=== PATIENT | male | born 1990 | race American Indian/Alaskan Native ===

== ENCOUNTER 2018-08-18 12:31 | Inpatient (IN) | payer BC ==
[2018-08-18] MEDS ORDERED: Sodium Chloride 0.9% 1,000 ML IV ONE (14:05)
--- NOTE | 2018-08-18 14:20 | C.PDOC ---
History Of Present Illness 28 y/o male presents to ED with c/o abdominal pain for 6 days and dark stool for "few days". Patient denies fever, hematemesis, diarrhea, dysuria, back pain or any other complaints at this time. Time Seen by Provider: 08/18/18 13:30 Chief Complaint (Nursing): Abdominal Pain History Per: Patient History/Exam Limitations: no limitations Onset/Duration Of Symptoms: Days Current Symptoms Are (Timing): Still Present Past Medical History Reviewed: Historical Data, Nursing Documentation, Vital Signs Vital Signs: Last Vital Signs Temp 98.8 F 08/18/18 13:10 Pulse 109 H 08/18/18 13:10 Resp 20 08/18/18 13:10 BP 149/102 H 08/18/18 13:10 Pulse Ox 100 08/18/18 13:10 - Medical History PMH: No Chronic Diseases Surgical History: No Surg Hx Family History: States: No Known Family Hx - Social History Hx Alcohol Use: No Hx Substance Use: No - Immunization History Hx Tetanus Toxoid Vaccination: No Hx Influenza Vaccination: No Hx Pneumococcal Vaccination: No Review Of Systems Constitutional: Negative for: Fever, Chills Cardiovascular: Negative for: Chest Pain Gastrointestinal: Positive for: Abdominal Pain. Negative for: Nausea, Vomiting Musculoskeletal: Negative for: Back Pain Physical Exam - Physical Exam Appears: Non-toxic, No Acute Distress Skin: Warm, Dry, No Rash Head: Atraumatic, Normacephalic Eye(s): bilateral: Normal Inspection Oral Mucosa: Moist Neck: Normal ROM, Supple Cardiovascular: Rhythm Regular Respiratory: Normal Breath Sounds, No Rales, No Rhonchi, No Wheezing Gastrointestinal/Abdominal: Soft, Tenderness (Diffuse), No Guarding, No Rebound Back: No CVA Tenderness Extremity: Normal ROM, Capillary Refill (<2 seconds), No Deformity Neurological/Psych: Oriented x3, Normal Speech, Normal Cognition ED Course And Treatment - Laboratory Results Result Diagrams: 08/18/18 14:21 08/18/18 14:21 O2 Sat by Pulse Oximetry: 100 (RA) Pulse Ox Interpretation: Normal Medical Decision Making Medical Decision Making: ro gi bleed labs imaging pending labs neg. ct shows ?sbo. accepted by pmd requests arago on consult. Disposition - Disposition Disposition: HOSPITALIZED Disposition Time: 17:56 Condition: STABLE - Clinical Impression Clinical Impression: Abdominal pain - Scribe Statement The provider has reviewed the documentation as recorded by the Lashayibenzo Ravi All medical record entries made by the Lashayibenzo were at my direction and personally dictated by me. I have reviewed the chart and agree that the record accurately reflects my personal performance of the history, physical exam, medical decision making, and the department course for this patient. I have also personally directed, reviewed, and agree with the discharge instructions and disposition.
[2018-08-18 14:26] LABS: BASO # 0.1 K/uL (0.0-0.2); BASO % 0.6 % (0.0-2.0); EOS # 0.1 K/uL (0.0-0.7); EOS % 1.3 % (0.0-4.0); HEMOGLOBIN 11.5 g/dL (12.0-18.0); LYMPH # 0.9 K/uL (1.0-4.3); LYMPH % 10.8 % (20.0-40.0); MEAN CELL VOLUME 81.4 fL (80.0-94.0); MEAN CORPUSCULAR HEMOGLOBIN 27.8 pg (27.0-31.0); MEAN CORPUSCULAR HGB CONC 34.2 g/dL (33.0-37.0); MEAN PLATELET VOLUME 6.8 fL (7.2-11.7); MONO # 1.1 K/uL (0.0-0.8); MONO % 13.1 % (0.0-10.0); NEUT # 6.5 K/uL (1.8-7.0); NEUT % 74.2 % (50.0-75.0); NRBC % 0.1 % (0.0-2.0); RBC 4.14 Mil/uL (4.40-5.90); WHITE BLOOD COUNT 8.7 K/uL (4.8-10.8)
[2018-08-18] MEDS ORDERED: Sodium Chloride 0.9% 1,000 ML ONE (14:31)
[2018-08-18 14:35] LABS: INR 1.5; PROTHROMBIN TIME 16.7 SECONDS (9.7-12.2)
[2018-08-18 14:39] LABS: ALBUMIN 4.5 g/dL (3.5-5.0); ALT/SGPT 47 U/L (21-72); AST/SGOT 47 U/L (17-59); BLOOD UREA NITROGEN 12 mg/dL (9-20); CALCIUM 9.7 mg/dl (8.6-10.4); GFR NON-AFRICAN AMERICAN > 60; LIPASE 232 U/L (23-300)
[2018-08-18] MEDS ORDERED: Potassium Chloride 20 mEq ER Tab PO STA (14:40)
[2018-08-18] MEDS ORDERED: Potassium Chloride 20 mEq ER Tab PO ONE (14:56)
[2018-08-18] MEDS ORDERED: Iodixanol 320 MG/ML 100 ML BOTTLE IV ONE (15:48)
[2018-08-18 16:23] LABS: SQUAMOUS EPITHIAL < 1 /hpf (0-5); URINE BILIRUBIN NEGATIVE (NEGATIVE); URINE BLOOD NEGATIVE (NEGATIVE); URINE GLUCOSE (UA) NORMAL (Normal); URINE LEUKOCYTE ESTERASE NEG Leu/uL (Negative); URINE PROTEIN 1+ mg/dL (NEGATIVE)
[2018-08-18 16:24] LABS: URINE CLARITY SL HAZY (Clear); URINE COLOR YELLOW (YELLOW)
--- NOTE | 2018-08-18 17:01 | CT ---
Date of service: 08/18/2018 PROCEDURE: CT Abdomen and Pelvis with contrast HISTORY: abd pain, gi bleed COMPARISON: None. TECHNIQUE: Following the intravenous administration of iodinated contrast material, a CT examination of the abdomen and pelvis performed from the domes of the diaphragms to the symphysis pubis with reformatted datasets provided in axial, sagittal and coronal planes. Oral contrast was not administered as per referring physician request. Coronal and sagittal reformats were generated. Contrast dose: Visipaque 320, 100 cc Radiation dose: Total exam DLP = 1186.78 mGy-cm. This CT exam was performed using one or more of the following dose reduction techniques: Automated exposure control, adjustment of the mA and/or kV according to patient size, and/or use of iterative reconstruction technique. FINDINGS: LOWER THORAX: Limited linear atelectasis or fibrosis in the right middle lobe as well as the left greater than right lower lobes. No pleural or pericardial effusion or cardiomegaly. LIVER: Unremarkable. No gross lesion or ductal dilatation. GALLBLADDER AND BILE DUCTS: Contracted. No radiodense cholelithiasis. PANCREAS: Unremarkable. No gross lesion or ductal dilatation. SPLEEN: Mild splenomegaly is identified to 13.5 cm. ADRENALS: Unremarkable. No mass. KIDNEYS AND URETERS: Unremarkable. No hydronephrosis. No solid mass. VASCULATURE: Unremarkable. No aortic aneurysm. No aortic atherosclerotic calcification or mural plaque present. BOWEL: Stomach is decompressed. There are gas-filled loops of small and large bowel which are variably distended could reflect a developing ileus or distal small bowel obstruction though if obstruction is present would be partial or intermittent obstructive process. Further clinical correlation is advised. APPENDIX: The appendix is difficult to evaluate due to limited pelvic ascites and mesenteric changes. Appendicitis is not favored however clinical correlation is advised as the proximal segment appears upper limits normal caliber at 7.5 mm. PERITONEUM: Trace ascites in the lower abdomen and pelvis of uncertain origin. Numerous lymph nodes are identified scattered in the central mesentery and also medial to the cecum in a pattern that may reflect mesenteric adenitis. No free intra peritoneal gas collection identified. LYMPH NODES: See perineum section above. BLADDER: Unremarkable. REPRODUCTIVE: Unremarkable. BONES: No acute fracture. OTHER FINDINGS: None. IMPRESSION: 1. Potential intermittent or partial distal small bowel obstruction versus ileus. 2. Likely mesenteric adenitis. 3. Mild splenomegaly. 4. Limited lower abdomen/pelvic ascites. The appendix is obscured secondarily and appendicitis is not favored but is difficult to fully exclude and further clinical correlation is advised. Findings discussed with Dr. Quinones with written down read back verification 08/18/2018 4:52 p.m.
[2018-08-18] MEDS ORDERED: Lactated Ringer's 1,000 ML IV SCH (17:30)
--- NOTE | 2018-08-18 18:12 | CP.PCM.HP ---
History of Present Illness - History of Present Illness History of Present Illness: Admitted this 28 years old male because of sudden onset of abdominal pains about 6 days ago. He did not have any LBM, nor vomiting. Claims he has bowel movements but not loose. The patient claims the pain is getting slightly better. Patient claims he was not eating because of th pains. Present on Admission - Present on Admission Any Indicators Present on Admission: No Review of Systems - Constitutional Constitutional: Weakness - Gastrointestinal Gastrointestinal: Abdominal Pain, Bloating, Nausea Past Patient History - Past Medical History & Family History Past Medical History?: No - Past Social History Smoking Status: Never Smoked Chewing Tobacco Use: No Cigar Use: No Alcohol: None Drugs: Denies Home Situation {Lives}: Alone - CARDIAC Hx Cardiac Disorders: No - PULMONARY Hx Respiratory Disorders: No - NEUROLOGICAL Hx Neurological Disorder: No - HEENT Hx HEENT Problems: No - RENAL Hx Chronic Kidney Disease: No - ENDOCRINE/METABOLIC Hx Endocrine Disorders: No - HEMATOLOGICAL/ONCOLOGICAL Hx Blood Disorders: No - INTEGUMENTARY Hx Dermatological Problems: No - MUSCULOSKELETAL/RHEUMATOLOGICAL Hx Musculoskeletal Disorders: No - GASTROINTESTINAL Hx Gastrointestinal Disorders: Yes (C/O abdominal pains x 6 days.) - GENITOURINARY/GYNECOLOGICAL Hx Genitourinary Disorders: No - PSYCHIATRIC Hx Psychophysiologic Disorder: No Hx Substance Use: No - SURGICAL HISTORY Hx Surgeries: No - ANESTHESIA Hx Anesthesia: No Has any member of the family had a problem w/ anesthesia?: No Meds Allergies/Adverse Reactions: Allergies Allergy/AdvReac Type Severity Reaction Status Date / Time No Known Allergies Allergy Unverified 08/18/18 13:12 Physical Exam - Constitutional Appears: No Acute Distress Additional comments: Very nervous. - Head Exam Head Exam: ATRAUMATIC, NORMAL INSPECTION, NORMOCEPHALIC - Eye Exam Eye Exam: EOMI, Normal appearance, PERRL Pupil Exam: NORMAL ACCOMODATION, PERRL - ENT Exam ENT Exam: Mucous Membranes Dry - Neck Exam Neck exam: Positive for: Full Rom - Respiratory Exam Respiratory Exam: Clear to Auscultation Bilateral, NORMAL BREATHING PATTERN - Cardiovascular Exam Cardiovascular Exam: Tachycardia, REGULAR RHYTHM, +S1, +S2 - GI/Abdominal Exam GI & Abdominal Exam: Hypoactive Bowel Sounds, Soft - Rectal Exam Rectal Exam: Deferred - Extremities Exam Extremities exam: Positive for: full ROM, normal inspection - Back Exam Back exam: FULL ROM, NORMAL INSPECTION - Neurological Exam Neurological exam: Alert, Oriented x3, Reflexes Normal - Psychiatric Exam Psychiatric exam: Normal Affect - Skin Skin Exam: Dry, Normal Color, Warm Results - Vital Signs Recent Vital Signs: Last Vital Signs Temp 98.8 F 08/18/18 17:46 Pulse 114 H 08/18/18 17:46 Resp 20 08/18/18 17:46 BP 159/99 H 08/18/18 17:46 Pulse Ox 100 08/18/18 17:46 - Labs Result Diagrams: 08/18/18 14:21 08/18/18 14:21 Labs: Laboratory Results - last 24 hr 08/18/18 08/18/18 08/18/18 14:21 14:21 14:21 WBC 8.7 RBC 4.14 L Hgb 11.5 L Hct 33.7 L MCV 81.4 MCH 27.8 MCHC 34.2 RDW 14.0 Plt Count 506 H MPV 6.8 L Neut % (Auto) 74.2 Lymph % (Auto) 10.[address] [place] % (Auto) 13.1 H Eos % (Auto) 1.3 Baso % (Auto) 0.6 Neut # (Auto) 6.5 Lymph # (Auto) 0.[address] # (Auto) 1.1 H Eos # (Auto) 0.1 Baso # (Auto) 0.1 PT 16.7 H INR 1.5 APTT 32 Sodium 136 Potassium 2.9 L Chloride 88 L Carbon Dioxide 34 H Anion Gap 17 BUN 12 Creatinine 1.1 Est GFR ( Amer) > 60 Est GFR (Non-Af Amer) > 60 Random Glucose 106 Calcium 9.7 Total Bilirubin 4.0 H AST 47 ALT 47 Alkaline Phosphatase 124 Total Protein 8.9 H Albumin 4.5 Globulin 4.4 H Albumin/Globulin Ratio 1.0 Lipase 232 Urine Color Urine Clarity Urine pH Ur Specific [place] Urine Protein Urine Glucose (UA) Urine Ketones Urine Blood Urine Nitrate Urine Bilirubin Urine Urobilinogen Ur Leukocyte Esterase Urine WBC (Auto) Urine RBC (Auto) Ur Squamous Epith Cells Stool Occult Blood Blood Type Antibody Screen 08/18/18 08/18/18 08/18/18 14:21 14:21 16:13 WBC RBC Hgb Hct MCV MCH MCHC RDW Plt Count MPV Neut % (Auto) Lymph % (Auto) [place] % (Auto) Eos % (Auto) Baso % (Auto) Neut # (Auto) Lymph # (Auto) [place] # (Auto) Eos # (Auto) Baso # (Auto) PT INR APTT Sodium Potassium Chloride Carbon Dioxide Anion Gap BUN Creatinine Est GFR ( Amer) Est GFR (Non-Af Amer) Random Glucose Calcium Total Bilirubin AST ALT Alkaline Phosphatase Total Protein Albumin Globulin Albumin/Globulin Ratio Lipase Urine Color Yellow Urine Clarity Sl hazy Urine pH 6.0 Ur Specific [place] 1.033 H Urine Protein 1+ H Urine Glucose (UA) Normal Urine Ketones 1+ H Urine Blood Negative Urine Nitrate Negative Urine Bilirubin Negative Urine Urobilinogen 4.0 Ur Leukocyte Esterase Neg Urine WBC (Auto) 13 H Urine RBC (Auto) 2 Ur Squamous Epith Cells < 1 Stool Occult Blood Negative Blood Type B POSITIVE Antibody Screen Negative Assessment & Plan - Assessment and Plan (Free Text) Assessment: Assessment: Small bowel obstruction VS Ileus. Hypokalemia Abdominal pains cause to bne determined. Tachycardia cause to be determined. Plan: Plan: NPO IV fluids 0.9 NSS 100 cc/hourly. Serial chemistries. Surgical consultation. abdominal US.
[2018-08-18] MEDS: Sodium Chloride 0.9% 1,000 ML IV SCH (18:33)
--- NOTE | 2018-08-18 19:30 | CP.PCM.CON ---
History of Present Illness - History of Present Illness History of Present Illness: General Surgery Consult Note for Dr. Dixon This is a 28M with a PMH of anemia. He presents because he has abdominal pain since wednesday. He reports that at the time the pain was a 10/10 so he did not eat due to lack of appetite. He now rates the pain as a 1.5/10. He said nothing makes it better worse. He reports that he has been taking alot of peptobismol becuase he felt the pain was associated with gas. He reports that he presented to the ED today becuase th epain persis and he wanted to know. He reports that he has been passing gas and moving his bowels. He reports last BM was today and that it was black. However it was not tarry or stick. He reports it was soft DAIN in ED was quiac negative. PMH:Anemia PSH: Denies Social: Denies vices Family: mother breast CA Review of Systems - Review of Systems All systems: reviewed and no additional remarkable complaints except - Constitutional Constitutional: absent: Anorexia, Chills - EENT Eyes: absent: Blind Spots, Blurred Vision - Cardiovascular Cardiovascular: absent: Chest Pain, Dyspnea - Respiratory Respiratory: absent: Dyspnea, Hemoptysis - Gastrointestinal Gastrointestinal: Abdominal Pain, Nausea - Genitourinary Genitourinary: Dysuria Past Patient History - Past Medical History & Family History Past Medical History?: No - Past Social History Smoking Status: Never Smoked Chewing Tobacco Use: No Cigar Use: No Alcohol: None Drugs: Denies Home Situation {Lives}: Alone - CARDIAC Hx Cardiac Disorders: No - PULMONARY Hx Respiratory Disorders: No - NEUROLOGICAL Hx Neurological Disorder: No - HEENT Hx HEENT Problems: No - RENAL Hx Chronic Kidney Disease: No - ENDOCRINE/METABOLIC Hx Endocrine Disorders: No - HEMATOLOGICAL/ONCOLOGICAL Hx Blood Disorders: No - INTEGUMENTARY Hx Dermatological Problems: No - MUSCULOSKELETAL/RHEUMATOLOGICAL Hx Musculoskeletal Disorders: No - GASTROINTESTINAL Hx Gastrointestinal Disorders: Yes (C/O abdominal pains x 6 days.) - GENITOURINARY/GYNECOLOGICAL Hx Genitourinary Disorders: No - PSYCHIATRIC Hx Substance Use: No - SURGICAL HISTORY Hx Surgeries: No - ANESTHESIA Hx Anesthesia: No Has any member of the family had a problem w/ anesthesia?: No Meds Allergies/Adverse Reactions: Allergies Allergy/AdvReac Type Severity Reaction Status Date / Time No Known Allergies Allergy Unverified 08/18/18 13:12 - Medications Medications: Current Medications Enoxaparin Sodium (Lovenox) 40 mg SC DAILY [facility] Lactated Ringer's (Lactated Ringer's) 1,000 mls @ 100 mls/hr IV .Q10H [facility] Sodium Chloride (Sodium Chloride 0.9%) 1,000 mls @ 100 mls/hr IV .Q10H [facility] Last Admin: 08/18/18 18:33 Dose: 100 mls/hr Ondansetron HCl (Zofran Inj) 4 mg IVP Q4H PRN PRN Reason: Nausea/Vomiting Physical Exam - Constitutional Appears: Non-toxic, No Acute Distress - Head Exam Head Exam: ATRAUMATIC, NORMOCEPHALIC - Eye Exam Eye Exam: EOMI - ENT Exam ENT Exam: Mucous Membranes Moist - Respiratory Exam Respiratory Exam: NORMAL BREATHING PATTERN - Cardiovascular Exam Cardiovascular Exam: +S1, +S2 - Neurological Exam Neurological exam: Normal Gait, Oriented x3 - Psychiatric Exam Psychiatric exam: Normal Affect, Normal Mood - Skin Skin Exam: Dry, Intact Results - Vital Signs Recent Vital Signs: Last Vital Signs Temp 98.8 F 08/18/18 17:46 Pulse 114 H 08/18/18 17:46 Resp 20 08/18/18 17:46 BP 159/99 H 08/18/18 17:46 Pulse Ox 100 08/18/18 18:58 - Labs Result Diagrams: 08/18/18 14:21 08/18/18 14:21 Labs: Laboratory Results - last 24 hr 08/18/18 08/18/18 08/18/18 14:21 14:21 14:21 WBC 8.7 RBC 4.14 L Hgb 11.5 L Hct 33.7 L MCV 81.4 MCH 27.8 MCHC 34.2 RDW 14.0 Plt Count 506 H MPV 6.8 L Neut % (Auto) 74.2 Lymph % (Auto) 10.8 L [place] % (Auto) 13.1 H Eos % (Auto) 1.3 Baso % (Auto) 0.6 Neut # (Auto) 6.5 Lymph # (Auto) 0.9 L [place] # (Auto) 1.1 H Eos # (Auto) 0.1 Baso # (Auto) 0.1 PT 16.7 H INR 1.5 APTT 32 Sodium 136 Potassium 2.9 L Chloride 88 L Carbon Dioxide 34 H Anion Gap 17 BUN 12 Creatinine 1.1 Est GFR ( Amer) > 60 Est GFR (Non-Af Amer) > 60 Random Glucose 106 Calcium 9.7 Total Bilirubin 4.0 H Direct Bilirubin AST 47 ALT 47 Alkaline Phosphatase 124 Total Protein 8.9 H Albumin 4.5 Globulin 4.4 H Albumin/Globulin Ratio 1.0 Lipase 232 Urine Color Urine Clarity Urine pH Ur Specific [place] Urine Protein Urine Glucose (UA) Urine Ketones Urine Blood Urine Nitrate Urine Bilirubin Urine Urobilinogen Ur Leukocyte Esterase Urine WBC (Auto) Urine RBC (Auto) Ur Squamous Epith Cells Stool Occult Blood Blood Type Antibody Screen 08/18/18 08/18/18 08/18/18 14:21 14:21 16:13 WBC RBC Hgb Hct MCV MCH MCHC RDW Plt Count MPV Neut % (Auto) Lymph % (Auto) [place] % (Auto) Eos % (Auto) Baso % (Auto) Neut # (Auto) Lymph # (Auto) [place] # (Auto) Eos # (Auto) Baso # (Auto) PT INR APTT Sodium Potassium Chloride Carbon Dioxide Anion Gap BUN Creatinine Est GFR ( Amer) Est GFR (Non-Af Amer) Random Glucose Calcium Total Bilirubin Direct Bilirubin AST ALT Alkaline Phosphatase Total Protein Albumin Globulin Albumin/Globulin Ratio Lipase Urine Color Yellow Urine Clarity Sl hazy Urine pH 6.0 Ur Specific [place] 1.033 H Urine Protein 1+ H Urine Glucose (UA) Normal Urine Ketones 1+ H Urine Blood Negative Urine Nitrate Negative Urine Bilirubin Negative Urine Urobilinogen 4.0 Ur Leukocyte Esterase Neg Urine WBC (Auto) 13 H Urine RBC (Auto) 2 Ur Squamous Epith Cells < 1 Stool Occult Blood Negative Blood Type B POSITIVE Antibody Screen Negative 08/18/18 18:31 WBC RBC Hgb Hct MCV MCH MCHC RDW Plt Count MPV Neut % (Auto) Lymph % (Auto) [place] % (Auto) Eos % (Auto) Baso % (Auto) Neut # (Auto) Lymph # (Auto) [place] # (Auto) Eos # (Auto) Baso # (Auto) PT INR APTT Sodium Potassium Chloride Carbon Dioxide Anion Gap BUN Creatinine Est GFR ( Amer) Est GFR (Non-Af Amer) Random Glucose Calcium Total Bilirubin Direct Bilirubin 2.4 H AST ALT Alkaline Phosphatase Total Protein Albumin Globulin Albumin/Globulin Ratio Lipase Urine Color Urine Clarity Urine pH Ur Specific [place] Urine Protein Urine Glucose (UA) Urine Ketones Urine Blood Urine Nitrate Urine Bilirubin Urine Urobilinogen Ur Leukocyte Esterase Urine WBC (Auto) Urine RBC (Auto) Ur Squamous Epith Cells Stool Occult Blood Blood Type Antibody Screen - Imaging and Cardiology CT scan - abdomen Status: Image reviewed by me, Report reviewed by me CT scan - pelvis Status: Image reviewed by me, Report reviewed by me Assessment & Plan - Assessment and Plan (Free Text) Assessment: 28M with abdominal pain CT: Possible early partial SBO vs mesenteric adinitis NPO IVF Pain Control Will re-evaluate in AM D/W Dr. Destiny Becerra PGY3
[2018-08-19] MEDS: Sodium Chloride 0.9% 1,000 ML IV SCH ×2 (06:22→14:46)
--- NOTE | 2018-08-19 08:32 | US ---
Abdominal ultrasound HISTORY: Abdominal pain. COMPARISON: CT dated 08/18/2018 TECHNIQUE: Real-time sonography was performed through the abdomen. FINDINGS: Liver: 15.4 centimeters in length. Increased echogenicity of the hepatic parenchymal cortex suggestive for fatty infiltration versus hepatic parenchymal disease. Clinical correlation. Gallbladder: Thickened gallbladder wall measuring up to 3.4 millimeters. No gross calculi or sludge. Negative sonographic Griffith's sign. Common bile duct measures 5.8 millimeters, within normal limits. Limited visualization of the pancreas. Spleen measures 11 centimeters in length, within normal limits. Visualized aorta and IVC are grossly preserved. Right kidney: 11.0 x 5.4 x 5.4 centimeters. No calculi or hydronephrosis Left Kidney: 12.8 x 6.3 x 6.4 centimeters. No calculi or hydronephrosis. Impression: 1. Prominent gallbladder wall measuring up to 3.4 millimeters. No gross calculi or sludge. Negative sonographic Griffith's sign. Clinical correlation. 2. Limited visualization of the pancreas. 3. Increased echogenicity of the hepatic parenchymal cortex suggestive for fatty infiltration versus hepatic parenchymal disease. Clinical correlation. A preliminary report was generated at 8:42 p.m. on 08/18/[address] Alex Barrios from [facility].
[2018-08-19 08:42] LABS: BASO % 0.6 % (0.0-2.0); EOS # 0.1 K/uL (0.0-0.7); EOS % 1.9 % (0.0-4.0); LYMPH # 0.8 K/uL (1.0-4.3); LYMPH % 12.1 % (20.0-40.0); MEAN CELL VOLUME 81.3 fL (80.0-94.0); MEAN CORPUSCULAR HEMOGLOBIN 27.8 pg (27.0-31.0); MEAN CORPUSCULAR HGB CONC 34.2 g/dL (33.0-37.0); MEAN PLATELET VOLUME 6.5 fL (7.2-11.7); MONO # 1.1 K/uL (0.0-0.8); MONO % 15.5 % (0.0-10.0); NEUT # 4.8 K/uL (1.8-7.0); NEUT % 69.9 % (50.0-75.0); RBC 3.61 Mil/uL (4.40-5.90); RED CELL DISTRIBUTION WIDTH 14.1 % (11.5-14.5); WHITE BLOOD COUNT 6.9 K/uL (4.8-10.8)
[2018-08-19 08:52] LABS: ALBUMIN 3.7 g/dL (3.5-5.0); ALT/SGPT 52 U/L (21-72); AST/SGOT 55 U/L (17-59); BLOOD UREA NITROGEN 10 mg/dL (9-20); GFR NON-AFRICAN AMERICAN > 60
[2018-08-19] MEDS ORDERED: Potassium Chloride 20 mEq ER Tab PO ONE (09:15)
[2018-08-19] MEDS: Enoxaparin 40 mg Syringe SC SCH (09:19)
[2018-08-19 09:20] LABS: HEPATITIS B SURFACE AG Negative (NEGATIVE)
[2018-08-19 09:26] LABS: HEPATITIS A IGM NEGATIVE (NEGATIVE); HEPATITIS B CORE AB NEGATIVE (NEGATIVE)
[2018-08-19 09:37] LABS: HEPATITIS C ANTIBODY NEGATIVE (NEGATIVE)
--- NOTE | 2018-08-19 10:26 | CP.PCM.PN ---
Subjective - Date & Time of Evaluation Date of Evaluation: 08/19/18 Time of Evaluation: 10:25 - Subjective Subjective: much improved. passing flatus. no distention. wiull start oral feedings Objective - Vital Signs/Intake and Output Vital Signs (last 24 hours): Temp Pulse Resp BP Pulse Ox 98.7 F 103 H 20 120/78 98 08/19/18 09:20 08/19/18 09:20 08/19/18 09:20 08/19/18 09:20 08/19/18 09:20 Intake and Output: 08/19/18 08/19/18 06:59 18:59 Intake Total 800 Balance 800 - Medications Medications: Current Medications Acetaminophen (Tylenol 325mg Tab) 650 mg PO Q6 PRN PRN Reason: Pain, moderate (4-7) Docusate Sodium (Colace) 100 mg PO BID [facility] Last Admin: 08/19/18 09:19 Dose: 100 mg Enoxaparin Sodium (Lovenox) 40 mg SC DAILY [facility] Last Admin: 08/19/18 09:19 Dose: 40 mg Lactated Ringer's (Lactated Ringer's) 1,000 mls @ 100 mls/hr IV .Q10H [facility] Last Admin: 08/18/18 21:01 Dose: 100 mls/hr Sodium Chloride (Sodium Chloride 0.9%) 1,000 mls @ 100 mls/hr IV .Q10H [facility] Last Admin: 08/19/18 06:22 Dose: 100 mls/hr Ondansetron HCl (Zofran Inj) 4 mg IVP Q4H PRN PRN Reason: Nausea/Vomiting - Labs Labs: 08/19/18 08:29 08/19/18 08:29 PT 16.7 SECONDS (9.7-12.2) H 08/18/18 14:21 INR 1.5 08/18/18 14:21 APTT 32 SECONDS (21-34) 08/18/18 14:21
--- NOTE | 2018-08-19 12:02 | CP.PCM.PN ---
Subjective - Date & Time of Evaluation Date of Evaluation: 08/19/18 Time of Evaluation: 11:58 - Subjective Subjective: Patient seen and examined. Laboratory results revieded.Abdominal US thickened gallbladder pina. Hepatitis proflie negative. Abdominal pains better. Tolerated the fluids PO> K still low at 3.0 No LBM. Objective - Vital Signs/Intake and Output Vital Signs (last 24 hours): Temp Pulse Resp BP Pulse Ox 98.7 F 103 H 20 120/78 98 08/19/18 09:20 08/19/18 09:20 08/19/18 09:20 08/19/18 09:20 08/19/18 09:20 Intake and Output: 08/19/18 08/19/18 06:59 18:59 Intake Total 800 Balance 800 - Medications Medications: Current Medications Acetaminophen (Tylenol 325mg Tab) 650 mg PO Q6 PRN PRN Reason: Pain, moderate (4-7) Docusate Sodium (Colace) 100 mg PO BID [facility] Last Admin: 08/19/18 09:19 Dose: 100 mg Enoxaparin Sodium (Lovenox) 40 mg SC DAILY [facility] Last Admin: 08/19/18 09:19 Dose: 40 mg Lactated Ringer's (Lactated Ringer's) 1,000 mls @ 100 mls/hr IV .Q10H [facility] Last Admin: 08/18/18 21:01 Dose: 100 mls/hr Sodium Chloride (Sodium Chloride 0.9%) 1,000 mls @ 100 mls/hr IV .Q10H [facility] Last Admin: 08/19/18 06:22 Dose: 100 mls/hr Potassium Chloride (Potassium Chloride 20 Meq/100 Ml) 20 meq in 100 mls @ 50 mls/hr IVPB ONCE ONE Stop: 08/19/18 13:52 Ondansetron HCl (Zofran Inj) 4 mg IVP Q4H PRN PRN Reason: Nausea/Vomiting - Labs Labs: 08/19/18 08:29 08/19/18 08:29 PT 16.7 SECONDS (9.7-12.2) H 08/18/18 14:21 INR 1.5 08/18/18 14:21 APTT 32 SECONDS (21-34) 08/18/18 14:21 - Constitutional Appears: No Acute Distress - Head Exam Head Exam: ATRAUMATIC, NORMAL INSPECTION, NORMOCEPHALIC - Eye Exam Eye Exam: EOMI, Normal appearance, PERRL Pupil Exam: NORMAL ACCOMODATION - ENT Exam ENT Exam: Mucous Membranes Moist - Neck Exam Neck Exam: Full ROM, Normal Inspection - Respiratory Exam Respiratory Exam: Clear to Ausculation Bilateral, NORMAL BREATHING PATTERN - Cardiovascular Exam Cardiovascular Exam: REGULAR RHYTHM, +S1, +S2 - GI/Abdominal Exam GI & Abdominal Exam: Soft, Normal Bowel Sounds - Rectal Exam Rectal Exam: Deferred - Extremities Exam Extremities Exam: Full ROM, Normal Inspection - Back Exam Back Exam: Full ROM, NORMAL INSPECTION - Neurological Exam Neurological Exam: Alert, Awake, Oriented x3, Reflexes Normal - Psychiatric Exam Psychiatric exam: Normal Affect, Normal Mood - Skin Skin Exam: Dry, Intact, Normal Color Assessment and Plan - Assessment and Plan (Free Text) Assessment: Assessment: Ileus sec to hypokalemia. Abdominal pains cause? Plan: Plan: Will give IV potassium 10 Meq. Serum lipase . If K is better in Am will Discharge.
[2018-08-19] MEDS ORDERED: Iohexol 240 (50 ml) PO ONE (14:45)
[2018-08-19] MEDS ORDERED: Iodixanol 320 MG/ML 100 ML BOTTLE IV ONE (20:02)
--- NOTE | 2018-08-19 23:40 | CARD ---
APPROVED REPORT Date of service: 08/18/2018 EKG Measurement Heart [id number] ID [id number] <Conclusion> Sinus tachycardia Nonspecific T wave abnormality Abnormal ECG
[2018-08-20] MEDS: Sodium Chloride 0.9% 1,000 ML IV SCH ×2 (01:32→12:45)
--- NOTE | 2018-08-20 07:46 | CP.PCM.PN ---
Subjective - Date & Time of Evaluation Date of Evaluation: 08/20/18 Time of Evaluation: 07:41 - Subjective Subjective: patient claims pains is slowly subsiding. Dr. Neal called yesterday and discussed the findings of the CAT scan. He claims that there could be a collection of what appears like a collection of fluids at the pelvic area ? appendicitieal abscess?. Recomemded a repeat CAT Scan with oral contrast. whiuch was done but no official report as of this time. I called Dr. Dixon and discussed the case with him and I kept the aptient NPO in the meantime. Patient is afebrile. Objective - Vital Signs/Intake and Output Vital Signs (last 24 hours): Temp Pulse Resp BP Pulse Ox 99.2 F 101 H 20 141/92 H 96 08/19/18 23:45 08/20/18 04:19 08/19/18 23:45 08/19/18 23:45 08/19/18 23:45 Intake and Output: 08/20/18 08/20/18 06:59 18:59 Intake Total 1600 Balance 1600 - Medications Medications: Current Medications Acetaminophen (Tylenol 325mg Tab) 650 mg PO Q6 PRN PRN Reason: Pain, moderate (4-7) Docusate Sodium (Colace) 100 mg PO BID [facility] Last Admin: 08/19/18 18:24 Dose: 100 mg Enoxaparin Sodium (Lovenox) 40 mg SC DAILY [facility] Last Admin: 08/19/18 09:19 Dose: 40 mg Lactated Ringer's (Lactated Ringer's) 1,000 mls @ 100 mls/hr IV .Q10H [facility] Last Admin: 08/18/18 21:01 Dose: 100 mls/hr Sodium Chloride (Sodium Chloride 0.9%) 1,000 mls @ 100 mls/hr IV .Q10H [facility] Last Admin: 08/20/18 01:32 Dose: 100 mls/hr Ondansetron HCl (Zofran Inj) 4 mg IVP Q4H PRN PRN Reason: Nausea/Vomiting - Labs Labs: 08/19/18 08:29 08/19/18 08:29 PT 16.7 SECONDS (9.7-12.2) H 08/18/18 14:21 INR 1.5 08/18/18 14:21 APTT 32 SECONDS (21-34) 08/18/18 14:21 - Constitutional Appears: Non-toxic, No Acute Distress - Head Exam Head Exam: ATRAUMATIC, NORMAL INSPECTION, NORMOCEPHALIC - Eye Exam Eye Exam: EOMI, Normal appearance, PERRL Pupil Exam: PERRL - ENT Exam ENT Exam: Mucous Membranes Moist - Neck Exam Neck Exam: Full ROM - Respiratory Exam Respiratory Exam: Clear to Ausculation Bilateral, NORMAL BREATHING PATTERN - Cardiovascular Exam Cardiovascular Exam: Tachycardia - GI/Abdominal Exam GI & Abdominal Exam: Soft, Tenderness - Rectal Exam Rectal Exam: Deferred - Extremities Exam Extremities Exam: Full ROM - Back Exam Back Exam: CVA tenderness (R), NORMAL INSPECTION - Neurological Exam Neurological Exam: Alert, Awake, Oriented x3 - Skin Skin Exam: Dry, Intact, Normal Color, Warm Assessment and Plan - Assessment and Plan (Free Text) Assessment: Assessment: Abdominal pains etiology still undetermined at this time. Plan: Plan: NPO. Continue IV fluids. Check the result of CAT SCan.
[2018-08-20 08:40] LABS: BASO % 0.5 % (0.0-2.0); EOS # 0.1 K/uL (0.0-0.7); EOS % 1.9 % (0.0-4.0); LYMPH # 0.8 K/uL (1.0-4.3); LYMPH % 11.5 % (20.0-40.0); MEAN CELL VOLUME 80.9 fL (80.0-94.0); MEAN CORPUSCULAR HEMOGLOBIN 27.3 pg (27.0-31.0); MEAN CORPUSCULAR HGB CONC 33.7 g/dL (33.0-37.0); MEAN PLATELET VOLUME 6.3 fL (7.2-11.7); MONO # 0.9 K/uL (0.0-0.8); MONO % 13.3 % (0.0-10.0); NEUT # 4.8 K/uL (1.8-7.0); NEUT % 72.8 % (50.0-75.0); RBC 3.65 Mil/uL (4.40-5.90); RED CELL DISTRIBUTION WIDTH 14.1 % (11.5-14.5); WHITE BLOOD COUNT 6.6 K/uL (4.8-10.8)
[2018-08-20 08:53] LABS: ALB/GLOB RATIO 1.1 (1.0-2.1); ALBUMIN 3.7 g/dL (3.5-5.0); ALT/SGPT 53 U/L (21-72); AST/SGOT 47 U/L (17-59); BLOOD UREA NITROGEN 5 mg/dL (9-20); CALCIUM 8.5 mg/dl (8.6-10.4); GFR NON-AFRICAN AMERICAN > 60
[2018-08-20 08:53] LABS: ALBUMIN 3.7 g/dL (3.5-5.0); ALT/SGPT 48 U/L (21-72); AST/SGOT 42 U/L (17-59); BLOOD UREA NITROGEN 5 mg/dL (9-20); CALCIUM 8.8 mg/dl (8.6-10.4); GFR NON-AFRICAN AMERICAN > 60; LIPASE 264 U/L (23-300)
[2018-08-20 09:08] LABS: FREE T4 2.29 ng/dL (0.78-2.19)
--- NOTE | 2018-08-20 09:08 | RAD ---
Date of service: 08/20/2018 HISTORY: tachycardia COMPARISON: Comparison made with CT scan abdomen pelvis 08/19/2018 which imaged both lung bases. FINDINGS: LUNGS: No active pulmonary disease. PLEURA: No significant pleural effusion identified, no pneumothorax apparent. CARDIOVASCULAR: No aortic atherosclerotic calcification present. Normal cardiac size. No pulmonary vascular congestion. OSSEOUS STRUCTURES: No significant abnormalities. VISUALIZED UPPER ABDOMEN: Normal. OTHER FINDINGS: None. IMPRESSION: Poor inspiration with low lung volumes, crowded bronchovascular markings and mild bibasilar atelectasis
[2018-08-20] MEDS: Enoxaparin 40 mg Syringe SC SCH (09:53)
--- NOTE | 2018-08-20 09:58 | CP.PCM.PN ---
Subjective - Date & Time of Evaluation Date of Evaluation: 08/20/18 Time of Evaluation: 07:00 - Subjective Subjective: GENERAL SURGERY PROGRESS NOTE FOR DR. GONZALEZ Patient seen and examined at bedside. He denies abdominal pain. States that he is passing flatus and had a BM last night. Objective - Vital Signs/Intake and Output Vital Signs (last 24 hours): Temp Pulse Resp BP Pulse Ox 98.5 F 108 H 20 141/88 96 08/20/18 07:10 08/20/18 07:10 08/20/18 07:10 08/20/18 07:10 08/20/18 07:10 Intake and Output: 08/20/18 08/20/18 06:59 18:59 Intake Total 1600 Balance 1600 - Medications Medications: Current Medications Acetaminophen (Tylenol 325mg Tab) 650 mg PO Q6 PRN PRN Reason: Pain, moderate (4-7) Docusate Sodium (Colace) 100 mg PO BID [facility] Last Admin: 08/20/18 09:52 Dose: 100 mg Enoxaparin Sodium (Lovenox) 40 mg SC DAILY [facility] Last Admin: 08/20/18 09:53 Dose: 40 mg Lactated Ringer's (Lactated Ringer's) 1,000 mls @ 100 mls/hr IV .Q10H [facility] Last Admin: 08/18/18 21:01 Dose: 100 mls/hr Sodium Chloride (Sodium Chloride 0.9%) 1,000 mls @ 100 mls/hr IV .Q10H [facility] Last Admin: 08/20/18 01:32 Dose: 100 mls/hr Ondansetron HCl (Zofran Inj) 4 mg IVP Q4H PRN PRN Reason: Nausea/Vomiting - Labs Labs: 08/20/18 08:31 08/20/18 08:31 PT 16.7 SECONDS (9.7-12.2) H 08/18/18 14:21 INR 1.5 08/18/18 14:21 APTT 32 SECONDS (21-34) 08/18/18 14:21 - Constitutional Appears: Non-toxic, No Acute Distress - Head Exam Head Exam: ATRAUMATIC, NORMAL INSPECTION - Eye Exam Eye Exam: EOMI, Normal appearance - Respiratory Exam Respiratory Exam: NORMAL BREATHING PATTERN. absent: Respiratory Distress - Cardiovascular Exam Cardiovascular Exam: +S1, +S2 - GI/Abdominal Exam GI & Abdominal Exam: Soft. absent: Distended, Firm, Guarding, Rigid, Tenderness - Neurological Exam Neurological Exam: Alert, Awake - Psychiatric Exam Psychiatric exam: Normal Affect, Normal Mood Assessment and Plan - Assessment and Plan (Free Text) Assessment: 28M with abdominal pain, CT: Possible early partial SBO vs mesenteric adenitis. Abscess adjacent to Rectum CT: Potential intermittent or partial distal small bowel obstruction versus ileus. Likely mesenteric adenitis. Mild splenomegaly. Limited lower abdomen/pelvic ascites. 3.2 x 3.8 cm fluid collection with limited peripheral enhancement suspicious for an abscess adjacent to the rectum. Rectal thickening may indicate proctitis and there are a few small diverticula seen related to the mid distal sigmoid colon. Local pericolic and perirectal reaction. Appendix appears to terminate immediately cephalad to this area. Consider proctitis or possibly distal sigmoid diverticulitis. - NPO as per primary - FU repeat CT abd/pelvis w/ PO contrast - Will FU results - Discussed plan with Dr. Destiny Whaley PGY-4
--- NOTE | 2018-08-20 12:25 | CT ---
Date of service: 08/19/2018 PROCEDURE: CT Abdomen and Pelvis with Oral contrast. HISTORY: abdominal abcess Abdominal abscess COMPARISON: Comparison made with prior CT scan abdomen pelvis 08/18/2018. TECHNIQUE: Contiguous axial images of the abdomen and pelvis performed following oral and intravenous injection of approximately 100 cc Visipaque 320 contrast material. Additional 2D sagittal and coronal reformats generated. The the the Radiation dose: Total exam DLP = 990.29 mGy-cm. This CT exam was performed using one or more of the following dose reduction techniques: Automated exposure control, adjustment of the mA and/or kV according to patient size, and/or use of iterative reconstruction technique. FINDINGS: LOWER THORAX: Small of bilateral effusions left larger than right. Minor bibasilar atelectasis also present left slightly greater than right as well. There is small hiatal hernia. Heart size normal. No significant pericardial effusion. The LIVER: Unremarkable. No gross lesion or ductal dilatation. GALLBLADDER AND BILE DUCTS: Unremarkable. PANCREAS: Unremarkable. No mass. No ductal dilatation. SPLEEN: Spleen remains mildly enlarged.. ADRENALS: Unremarkable. KIDNEYS AND URETERS: Unremarkable. No stone or hydronephrosis. BLADDER: Urinary bladder is incompletely distended which in part accounts for thick-walled appearance. Muscular hypertrophy may contribute. REPRODUCTIVE: Unremarkable. APPENDIX: The appendix appears somewhat distended with mild wall thickening extending inferiorly into the pelvis abutting what appears to represent a proteinaceous fluid collection and/or abscess which has been described below. Findings could represent early acute ruptured appendicitis BOWEL: Evaluation of the bowel is somewhat limited due to incomplete opacification. Stomach is partially distended with food debris liquid and air. Multiple distended loops of small bowel are present with wall thickening of what appears to be the distal ileum. Findings could be reactive given the presence of what is felt to represent a small pelvic abscess which has been described above. Clinical correlation recommended. There also appear to be a few scattered colonic diverticula along the sigmoid colon. PERITONEUM: Re demonstrated is an apparent discrete proteinaceous fluid and/or abscess collection within the left aspect of the pelvis which abuts the adjacent distal sigmoid near the rectum which measures approximately 3.8 x 3.1 cm. The source of this possible abscess is of uncertain etiology though could represent ruptured appendicitis given the location of the tip of the slightly dilated thick-walled appendix abutting this small of proteinaceous and/or abscess collection however differential diagnosis would also include diverticulitis/proctitis. Clinical correlation recommended.. LYMPH NODES: Unremarkable. No enlarged lymph nodes. VASCULATURE: Unremarkable. No aortic aneurysm. No the aortic atherosclerotic calcification or mural plaque present. BONES: No fracture or destructive lesion. OTHER FINDINGS: None. IMPRESSION: Re demonstrated is an apparent discrete proteinaceous fluid and/or abscess collection within the left aspect of the pelvis which abuts the adjacent distal sigmoid near the rectum which measures approximately 3.8 x 3.1 cm. The source of this possible abscess is of uncertain etiology though could represent ruptured appendicitis given the location of the tip of the slightly dilated thick-walled appendix abutting this small of proteinaceous and/or abscess collection however differential diagnosis would also include diverticulitis/proctitis. Clinical correlation recommended.. Findings also suggest mild ileus with wall thickening of a few distal loops of ileum near the adjacent abscess collection. Changes could be reactive. The small bilateral effusions left larger than right with mild bibasilar atelectasis left greater than right. Mild splenomegaly.
[2018-08-20] MEDS: Piperacillin/Tazobact 3.375 GM in Sodium Chloride 100 ML IVPB SCH (18:00)
[2018-08-20] MEDS: metroNIDAZOLE IV 500 mg/100 ml 500 MG/100 ML BAG IVPB SCH (18:38)
[2018-08-21] MEDS: metroNIDAZOLE IV 500 mg/100 ml 500 MG/100 ML BAG IVPB SCH ×4 (01:00→18:30)
--- NOTE | 2018-08-21 01:18 | CP.PCM.CON ---
History of Present Illness - History of Present Illness History of Present Illness: 28 yo male hospitalized on08/18/2018 for an abdominal pain, poor appetite and nausea for the past few days. He denies any fever. Cardiological evaluation was called to assess his persistent tachycardia. A CT of the abdomen and pelvis on suggested a perforated appendicitis with abscess. Patient is on Flagyl and Zosyn. He is now afebrile with no abdominal pain . WBC: 6.6 Hgb: 10.0 Na+: 136 K+: 3.1 BUN: 25 creatiniine 0.5. Patient already received K+ replacement. Review of Systems - Constitutional Constitutional: Anorexia - Gastrointestinal Gastrointestinal: Abdominal Pain, Bloating Past Patient History - Past Medical History & Family History Past Medical History?: No - Past Social History Smoking Status: Never Smoked - CARDIAC Hx Cardiac Disorders: No - PULMONARY Hx Respiratory Disorders: No - NEUROLOGICAL Hx Neurological Disorder: No - HEENT Hx HEENT Problems: No - RENAL Hx Chronic Kidney Disease: No - ENDOCRINE/METABOLIC Hx Endocrine Disorders: No - HEMATOLOGICAL/ONCOLOGICAL Hx Blood Disorders: No - INTEGUMENTARY Hx Dermatological Problems: No - MUSCULOSKELETAL/RHEUMATOLOGICAL Hx Musculoskeletal Disorders: No Hx Falls: No - GASTROINTESTINAL Hx Gastrointestinal Disorders: Yes (C/O abdominal pains x 6 days.) - GENITOURINARY/GYNECOLOGICAL Hx Genitourinary Disorders: No - PSYCHIATRIC Hx Substance Use: No - SURGICAL HISTORY Hx Surgeries: No - ANESTHESIA Hx Anesthesia: No Has any member of the family had a problem w/ anesthesia?: No Meds Allergies/Adverse Reactions: Allergies Allergy/AdvReac Type Severity Reaction Status Date / Time No Known Allergies Allergy Unverified 08/18/18 13:12 - Medications Medications: Current Medications Acetaminophen (Tylenol 325mg Tab) 650 mg PO Q6 PRN PRN Reason: Pain, moderate (4-7) Docusate Sodium (Colace) 100 mg PO BID [facility] Last Admin: 08/20/18 18:37 Dose: 100 mg Enoxaparin Sodium (Lovenox) 40 mg SC DAILY [facility] Last Admin: 08/20/18 09:53 Dose: 40 mg Lactated Ringer's (Lactated Ringer's) 1,000 mls @ 100 mls/hr IV .Q10H [facility] Last Admin: 08/18/18 21:01 Dose: 100 mls/hr Sodium Chloride (Sodium Chloride 0.9%) 1,000 mls @ 100 mls/hr IV .Q10H [facility] Last Admin: 08/20/18 12:45 Dose: 100 mls/hr Piperacillin Sod/Tazobactam (Sod 3.375 gm/ Sodium Chloride) 100 mls @ 200 mls/hr IVPB Q8H [facility]; Protocol Last Admin: 08/20/18 18:00 Dose: 200 mls/hr Metronidazole (Flagyl) 500 mg in 100 mls @ 100 mls/hr IVPB Q6 [facility]; Protocol Last Admin: 08/20/18 18:38 Dose: 100 mls/hr Ondansetron HCl (Zofran Inj) 4 mg IVP Q4H PRN PRN Reason: Nausea/Vomiting Physical Exam - Constitutional Appears: Well, Non-toxic, No Acute Distress - Head Exam Head Exam: NORMAL INSPECTION - Eye Exam Eye Exam: Normal appearance - ENT Exam ENT Exam: Normal Exam - Neck Exam Neck exam: Positive for: Normal Inspection - Respiratory Exam Respiratory Exam: Clear to Auscultation Bilateral, NORMAL BREATHING PATTERN - Cardiovascular Exam Cardiovascular Exam: Tachycardia - GI/Abdominal Exam GI & Abdominal Exam: Normal Bowel Sounds, Soft - Rectal Exam Rectal Exam: Deferred - Extremities Exam Extremities exam: Positive for: normal inspection - Back Exam Back exam: NORMAL INSPECTION - Neurological Exam Neurological exam: Alert, Normal Gait, Oriented x3, Reflexes Normal - Psychiatric Exam Psychiatric exam: Anxious - Skin Skin Exam: Dry, Intact, Normal Color, Warm Results - Vital Signs Recent Vital Signs: Last Vital Signs Temp 98.2 F 08/20/18 15:15 Pulse 99 H 08/20/18 23:25 Resp 20 08/20/18 15:15 BP 139/91 H 08/20/18 15:15 Pulse Ox 98 08/20/18 15:15 - Labs Result Diagrams: 08/20/18 08:31 08/20/18 08:31 Labs: Laboratory Results - last 24 hr 08/20/18 08/20/18 08/20/18 08:17 08:31 08:31 WBC 6.6 RBC 3.65 L Hgb 10.0 L Hct 29.5 L MCV 80.9 MCH 27.3 MCHC 33.7 RDW 14.1 Plt Count 497 H MPV 6.3 L Neut % (Auto) 72.8 Lymph % (Auto) 11.5 L Leon % (Auto) 13.3 H Eos % (Auto) 1.9 Baso % (Auto) 0.5 Neut # (Auto) 4.8 Lymph # (Auto) 0.8 L Leon # (Auto) 0.9 H Eos # (Auto) 0.1 Baso # (Auto) 0.0 Sodium 136 137 Potassium 3.1 L 3.1 L Chloride 98 99 Carbon Dioxide 27 25 Anion Gap 14 16 BUN 5 L 5 L Creatinine 0.9 0.8 Est GFR ( Amer) > 60 > 60 Est GFR (Non-Af Amer) > 60 > 60 Random Glucose 98 95 Calcium 8.8 8.5 L Total Bilirubin 2.3 H 2.2 H AST 42 47 ALT 48 53 Alkaline Phosphatase 102 115 Total Protein 7.3 7.1 Albumin 3.7 3.7 Globulin 3.6 3.4 Albumin/Globulin Ratio 1.0 1.1 Lipase 264 Free T4 TSH 3rd Generation 08/20/18 08:31 WBC RBC Hgb Hct MCV MCH MCHC RDW Plt Count MPV Neut % (Auto) Lymph % (Auto) Leon % (Auto) Eos % (Auto) Baso % (Auto) Neut # (Auto) Lymph # (Auto) Leon # (Auto) Eos # (Auto) Baso # (Auto) Sodium Potassium Chloride Carbon Dioxide Anion Gap BUN Creatinine Est GFR ( Amer) Est GFR (Non-Af Amer) Random Glucose Calcium Total Bilirubin AST ALT Alkaline Phosphatase Total Protein Albumin Globulin Albumin/Globulin Ratio Lipase Free T4 2.29 H TSH 3rd Generation 1.08 Assessment & Plan (1) Abdominal pain Assessment and Plan: R/o Ruptured appendix with abscess. ? Needs appendectomy with peritoneal drainage of abscess or Medical treatment with IV antibiotics. Status: Acute (2) Tachycardia Assessment and Plan: Secondary to inflammation, since the patient is euvolemic, and with no pain, and Hgb: 10.0 Status: Acute
[2018-08-21] MEDS: Piperacillin/Tazobact 3.375 GM in Sodium Chloride 100 ML IVPB SCH ×3 (03:00→17:59)
[2018-08-21] MEDS: Sodium Chloride 0.9% 1,000 ML IV SCH (06:17)
[2018-08-21] MEDS: Enoxaparin 40 mg Syringe SC SCH (09:35)
[2018-08-21] MEDS: Dextrose 5%/0.45% NS 1,000 ML IV SCH ×2 (09:39→18:31)
--- NOTE | 2018-08-21 10:32 | CP.PCM.PN ---
Subjective - Date & Time of Evaluation Date of Evaluation: 08/21/18 Time of Evaluation: 07:20 - Subjective Subjective: Pt seen and examined this AM. No adverse events overnight. Patient states that he has no pain, no nausea, vomiting, or fevers and is still having BM's and passing gas. Objective - Vital Signs/Intake and Output Vital Signs (last 24 hours): Temp Pulse Resp BP Pulse Ox 98.6 F 96 H 20 118/78 95 08/21/18 08:06 08/21/18 08:48 08/21/18 08:06 08/21/18 08:06 08/21/18 08:06 - Medications Medications: Current Medications Acetaminophen (Tylenol 325mg Tab) 650 mg PO Q6 PRN PRN Reason: Pain, moderate (4-7) Docusate Sodium (Colace) 100 mg PO BID [facility] Last Admin: 08/21/18 09:35 Dose: 100 mg Enoxaparin Sodium (Lovenox) 40 mg SC DAILY [facility] Last Admin: 08/21/18 09:35 Dose: 40 mg Piperacillin Sod/Tazobactam (Sod 3.375 gm/ Sodium Chloride) 100 mls @ 200 mls/hr IVPB Q8H [facility]; Protocol Last Admin: 08/21/18 09:35 Dose: 200 mls/hr Metronidazole (Flagyl) 500 mg in 100 mls @ 100 mls/hr IVPB Q6 [facility]; Protocol Last Admin: 08/21/18 05:15 Dose: 100 mls/hr Dextrose/Sodium Chloride (Dextrose 5%/0.45% Ns 1000 Ml) 1,000 mls @ 100 mls/hr IV .Q10H [facility] Last Admin: 08/21/18 09:39 Dose: 100 mls/hr Ondansetron HCl (Zofran Inj) 4 mg IVP Q4H PRN PRN Reason: Nausea/Vomiting - Labs Labs: 08/20/18 08:31 08/20/18 08:31 PT 16.7 SECONDS (9.7-12.2) H 08/18/18 14:21 INR 1.5 08/18/18 14:21 APTT 32 SECONDS (21-34) 08/18/18 14:21 - Constitutional Appears: Well, Non-toxic, No Acute Distress - Head Exam Head Exam: ATRAUMATIC, NORMOCEPHALIC - Eye Exam Eye Exam: Normal appearance. absent: Conjunctival injection, Scleral icterus - ENT Exam ENT Exam: Mucous Membranes Moist, Normal Oropharynx - Respiratory Exam Respiratory Exam: NORMAL BREATHING PATTERN. absent: Accessory Muscle Use, Respiratory Distress - Cardiovascular Exam Cardiovascular Exam: RRR - GI/Abdominal Exam GI & Abdominal Exam: Soft. absent: Distended, Tenderness, Rebound - Neurological Exam Neurological Exam: Alert, Awake, Oriented x3 - Psychiatric Exam Psychiatric exam: Normal Affect, Normal Mood - Skin Skin Exam: Dry, Intact, Normal Color, Warm Assessment and Plan - Assessment and Plan (Free Text) Assessment: 28M with h/o abdominal pain with pelvic fluid collection Plan: Pt is currently clinically asymptomatic No surgical intervention indicated at this time--pelvic fluid origin not identified at this time but he is currently asymptomatic and exam is benign Recommend advancing to CLD as tolerated but diet management per primary PRN pain and nausea medication Encourage ambulation Discussed with DR. Dixon, further recs per him Enriqueta Gillespie, PGY2
[2018-08-21 11:16] LABS: BLOOD UREA NITROGEN 7 mg/dL (9-20); CALCIUM 8.4 mg/dl (8.6-10.4); GFR NON-AFRICAN AMERICAN > 60
--- NOTE | 2018-08-21 13:09 | CP.PCM.PN ---
Subjective - Date & Time of Evaluation Date of Evaluation: 08/21/18 Time of Evaluation: 13:04 - Subjective Subjective: patient interviewed and examined. abdomen is completely benign. no masses no area of tendernwss. patient is afebrile. History does not suggest origin of abscess. most likely appendicitis based on patients agePlan- will ask IR to evaluate if collection is amenable to ct guided drainage. Objective - Vital Signs/Intake and Output Vital Signs (last 24 hours): Temp Pulse Resp BP Pulse Ox 98.6 F 96 H 20 118/78 95 08/21/18 08:06 08/21/18 08:48 08/21/18 08:06 08/21/18 08:06 08/21/18 08:06 - Medications Medications: Current Medications Acetaminophen (Tylenol 325mg Tab) 650 mg PO Q6 PRN PRN Reason: Pain, moderate (4-7) Docusate Sodium (Colace) 100 mg PO BID [facility] Last Admin: 08/21/18 09:35 Dose: 100 mg Enoxaparin Sodium (Lovenox) 40 mg SC DAILY [facility] Last Admin: 08/21/18 09:35 Dose: 40 mg Piperacillin Sod/Tazobactam (Sod 3.375 gm/ Sodium Chloride) 100 mls @ 200 mls/hr IVPB Q8H [facility]; Protocol Last Admin: 08/21/18 09:35 Dose: 200 mls/hr Metronidazole (Flagyl) 500 mg in 100 mls @ 100 mls/hr IVPB Q6 [facility]; Protocol Last Admin: 08/21/18 12:59 Dose: 100 mls/hr Dextrose/Sodium Chloride (Dextrose 5%/0.45% Ns 1000 Ml) 1,000 mls @ 100 mls/hr IV .Q10H [facility] Last Admin: 08/21/18 09:39 Dose: 100 mls/hr Ondansetron HCl (Zofran Inj) 4 mg IVP Q4H PRN PRN Reason: Nausea/Vomiting - Labs Labs: 08/20/18 08:31 08/21/18 10:46 PT 16.7 SECONDS (9.7-12.2) H 08/18/18 14:21 INR 1.5 08/18/18 14:21 APTT 32 SECONDS (21-34) 08/18/18 14:21
--- NOTE | 2018-08-21 15:40 | CP.PCM.PN ---
Subjective - Date & Time of Evaluation Date of Evaluation: 08/21/18 Time of Evaluation: 15:35 - Subjective Subjective: Afebrile. Seen by Dr. Dixon. Suggested that the fluid collection be drained by the radiological interventionalis. Consult started. Patient placed PatPon IV Flagyl and Zosyn. Pain is definitely subsiding.Abdomen is soft with? tenderness at the lower part. Pateint has to be seen by a social staff worker to perform a colonoscopy after his acute phase. Objective - Vital Signs/Intake and Output Vital Signs (last 24 hours): Temp Pulse Resp BP Pulse Ox 98.6 F 96 H 20 118/78 95 08/21/18 08:06 08/21/18 08:48 08/21/18 08:06 08/21/18 08:06 08/21/18 08:06 - Medications Medications: Current Medications Acetaminophen (Tylenol 325mg Tab) 650 mg PO Q6 PRN PRN Reason: Pain, moderate (4-7) Docusate Sodium (Colace) 100 mg PO BID [facility] Last Admin: 08/21/18 09:35 Dose: 100 mg Enoxaparin Sodium (Lovenox) 40 mg SC DAILY [facility] Last Admin: 08/21/18 09:35 Dose: 40 mg Piperacillin Sod/Tazobactam (Sod 3.375 gm/ Sodium Chloride) 100 mls @ 200 mls/h r IVPB Q8H [facility]; Protocol Last Admin: 08/21/18 09:35 Dose: 200 mls/hr Metronidazole (Flagyl) 500 mg in 100 mls @ 100 mls/hr IVPB Q6 [facility]; Protocol Last Admin: 08/21/18 12:59 Dose: 100 mls/hr Dextrose/Sodium Chloride (Dextrose 5%/0.45% Ns 1000 Ml) 1,000 mls @ 100 mls/hr IV .Q10H [facility] Last Admin: 08/21/18 09:39 Dose: 100 mls/hr Ondansetron HCl (Zofran Inj) 4 mg IVP Q4H PRN PRN Reason: Nausea/Vomiting - Labs Labs: 08/20/18 08:31 08/21/18 10:46 PT 16.7 SECONDS (9.7-12.2) H 08/18/18 14:21 INR 1.5 08/18/18 14:21 APTT 32 SECONDS (21-34) 08/18/18 14:21 - Constitutional Appears: Well, Non-toxic, No Acute Distress - Head Exam Head Exam: ATRAUMATIC, NORMAL INSPECTION, NORMOCEPHALIC - Eye Exam Eye Exam: EOMI, Normal appearance, PERRL Pupil Exam: PERRL - ENT Exam ENT Exam: Mucous Membranes Moist - Neck Exam Neck Exam: Full ROM, Normal Inspection - Respiratory Exam Respiratory Exam: NORMAL BREATHING PATTERN - Cardiovascular Exam Cardiovascular Exam: Tachycardia, REGULAR RHYTHM, +S1, +S2 - GI/Abdominal Exam GI & Abdominal Exam: Soft, Hypoactive Bowel Sounds - Rectal Exam Rectal Exam: Deferred - Extremities Exam Extremities Exam: Full ROM - Back Exam Back Exam: Full ROM - Neurological Exam Neurological Exam: Alert, Awake, Oriented x3 - Psychiatric Exam Psychiatric exam: Anxious, Normal Affect, Normal Mood - Skin Skin Exam: Dry, Intact, Normal Color, Warm Assessment and Plan - Assessment and Plan (Free Text) Assessment: Assessment: Fluid collection at pelvis area. Cause?Diverticulits/or appendicitis. But given the non toxic presentation of patient , doubt if this is appendicitis. Plan: Plan: Continue IV antibiotics and IV fluds. Keep patient NPO. For drainage of the fluid in AM.
[2018-08-22] MEDS: Piperacillin/Tazobact 3.375 GM in Sodium Chloride 100 ML IVPB SCH ×3 (01:15→17:44)
[2018-08-22] MEDS: metroNIDAZOLE IV 500 mg/100 ml 500 MG/100 ML BAG IVPB SCH ×5 (01:16→23:46)
[2018-08-22] MEDS: Dextrose 5%/0.45% NS 1,000 ML IV SCH ×3 (06:20→13:45)
[2018-08-22] MEDS: Enoxaparin 40 mg Syringe SC SCH (09:23)
--- NOTE | 2018-08-22 09:28 | PCM.IRP ---
History of Present Illness - History of Present Illness History of Present Illness: IR requested to evaluate for drainage of pelvic collection. CT reviewed and shows a small collection in the dependent pelvis, 3.5 x 3.3 cm. The location is not amenable to percutaneous drainage. Recommend repeating CT and if collections increases, will attempt provided the venous plexus posteriorly does not obstruct drainage path. Objective - Vital Signs/Intake and Output Vital Signs (last 24 hours): Vital Signs - 24 hr 08/21/18 08/21/18 08/21/18 15:55 16:01 23:20 Temperature 97.7 F Pulse Rate 104 H 96 H 97 H Respiratory 20 Rate Blood Pressure 134/90 O2 Sat by Pulse 96 Oximetry 08/21/18 08/22/18 08/22/18 23:40 03:53 07:00 Temperature 99.2 F 99.4 F Pulse Rate 91 H 93 H 90 Respiratory 20 18 Rate Blood Pressure 147/94 H 141/92 H O2 Sat by Pulse 96 97 Oximetry 08/22/18 07:30 Temperature Pulse Rate 78 Respiratory Rate Blood Pressure O2 Sat by Pulse Oximetry - Medications Medications: Current Medications Acetaminophen (Tylenol 325mg Tab) 650 mg PO Q6 PRN PRN Reason: Pain, moderate (4-7) Docusate Sodium (Colace) 100 mg PO BID [facility] Last Admin: 08/22/18 09:19 Dose: Not Given Enoxaparin Sodium (Lovenox) 40 mg SC DAILY [facility] Last Admin: 08/22/18 09:23 Dose: Not Given Piperacillin Sod/Tazobactam (Sod 3.375 gm/ Sodium Chloride) 100 mls @ 200 mls/hr IVPB Q8H [facility]; Protocol Last Admin: 08/22/18 09:13 Dose: 200 mls/hr Metronidazole (Flagyl) 500 mg in 100 mls @ 100 mls/hr IVPB Q6 [facility]; Protocol Last Admin: 08/22/18 06:21 Dose: 100 mls/hr Dextrose/Sodium Chloride (Dextrose 5%/0.45% Ns 1000 Ml) 1,000 mls @ 100 mls/hr IV .Q10H [facility] Last Admin: 08/22/18 09:14 Dose: 100 mls/hr Ondansetron HCl (Zofran Inj) 4 mg IVP Q4H PRN PRN Reason: Nausea/Vomiting - Labs Labs (last 24 hours): Laboratory Results - last 24 hr 08/21/18 10:46 Sodium 137 Potassium 3.7 Chloride 102 Carbon Dioxide 20 L Anion Gap 19 BUN 7 L Creatinine 0.8 Est GFR ( Amer) > 60 Est GFR (Non-Af Amer) > 60 Random Glucose 70 L Calcium 8.4 L
--- NOTE | 2018-08-22 12:08 | CP.PCM.PN ---
Subjective - Date & Time of Evaluation Date of Evaluation: 08/22/18 Time of Evaluation: 12:03 - Subjective Subjective: Surgery: Dr. Dixon Pt seen and examined. No acute overnight events. States he feels well and denies abdominal pain. Pt states he would like to eat, denies any nausea/vomiting. Denies fevers/chills. Objective - Vital Signs/Intake and Output Vital Signs (last 24 hours): Temp Pulse Resp BP Pulse Ox 99.4 F 78 18 141/92 H 97 08/22/18 07:00 08/22/18 07:30 08/22/18 07:00 08/22/18 07:00 08/22/18 07:00 - Medications Medications: Current Medications Acetaminophen (Tylenol 325mg Tab) 650 mg PO Q6 PRN PRN Reason: Pain, moderate (4-7) Docusate Sodium (Colace) 100 mg PO BID [facility] Last Admin: 08/22/18 09:19 Dose: Not Given Enoxaparin Sodium (Lovenox) 40 mg SC DAILY [facility] Last Admin: 08/22/18 09:23 Dose: Not Given Piperacillin Sod/Tazobactam (Sod 3.375 gm/ Sodium Chloride) 100 mls @ 200 mls/hr IVPB Q8H [facility]; Protocol Last Admin: 08/22/18 09:13 Dose: 200 mls/hr Metronidazole (Flagyl) 500 mg in 100 mls @ 100 mls/hr IVPB Q6 [facility]; Protocol Last Admin: 08/22/18 11:25 Dose: 100 mls/hr Dextrose/Sodium Chloride (Dextrose 5%/0.45% Ns 1000 Ml) 1,000 mls @ 100 mls/hr IV .Q10H [facility] Last Admin: 08/22/18 09:14 Dose: 100 mls/hr Ondansetron HCl (Zofran Inj) 4 mg IVP Q4H PRN PRN Reason: Nausea/Vomiting - Labs Labs: 08/20/18 08:31 08/21/18 10:46 PT 16.7 SECONDS (9.7-12.2) H 08/18/18 14:21 INR 1.5 08/18/18 14:21 APTT 32 SECONDS (21-34) 08/18/18 14:21 - Constitutional Appears: Well, No Acute Distress - Head Exam Head Exam: ATRAUMATIC, NORMOCEPHALIC - Eye Exam Eye Exam: Normal appearance - ENT Exam ENT Exam: Mucous Membranes Moist - Respiratory Exam Respiratory Exam: NORMAL BREATHING PATTERN - Cardiovascular Exam Cardiovascular Exam: RRR - GI/Abdominal Exam GI & Abdominal Exam: Soft. absent: Distended, Guarding, Tenderness - Neurological Exam Neurological Exam: Alert, Awake, Oriented x3 - Skin Skin Exam: Dry, Warm Assessment and Plan - Assessment and Plan (Free Text) Assessment: 28M admitted for abdominal pain r/o SBO vs intra-abdominal abscess as seen on CT Plan: - IR consulted to evaluate for possible drainage of fluid collection, however not amenable at this time - pt can be tolerated on CLD and advanced slowly as tolerated - CT scan can be repeated in a day or so to see if drainage possible at that time - plan discussed with Dr. Dixon who agrees with above Ge
--- NOTE | 2018-08-22 13:27 | CP.PCM.PN ---
Subjective - Date & Time of Evaluation Date of Evaluation: 08/22/18 Time of Evaluation: 13:23 - Subjective Subjective: Afebrile. Patient seen and examined. Aspiration could not be done becuase the area is not too accesible. Repeat Scan will be repeated to assess the saiZe of the fluid collection. If there is no increase in ythe size as I have discussed with Dr. Dixon he suggestefd that the patiewnt can be discharged with antibiotics and to be seen by him in office. Objective - Vital Signs/Intake and Output Vital Signs (last 24 hours): Temp Pulse Resp BP Pulse Ox 99.4 F 78 18 141/92 H 97 08/22/18 07:00 08/22/18 07:30 08/22/18 07:00 08/22/18 07:00 08/22/18 07:00 - Medications Medications: Current Medications Acetaminophen (Tylenol 325mg Tab) 650 mg PO Q6 PRN PRN Reason: Pain, moderate (4-7) Docusate Sodium (Colace) 100 mg PO BID [facility] Last Admin: 08/22/18 09:19 Dose: Not Given Enoxaparin Sodium (Lovenox) 40 mg SC DAILY [facility] Last Admin: 08/22/18 09:23 Dose: Not Given Piperacillin Sod/Tazobactam (Sod 3.375 gm/ Sodium Chloride) 100 mls @ 200 mls/hr IVPB Q8H [facility]; Protocol Last Admin: 08/22/18 09:13 Dose: 200 mls/hr Metronidazole (Flagyl) 500 mg in 100 mls @ 100 mls/hr IVPB Q6 [facility]; Protocol Last Admin: 08/22/18 11:25 Dose: 100 mls/hr Dextrose/Sodium Chloride (Dextrose 5%/0.45% Ns 1000 Ml) 1,000 mls @ 100 mls/hr IV .Q10H [facility] Last Admin: 08/22/18 09:14 Dose: 100 mls/hr Ondansetron HCl (Zofran Inj) 4 mg IVP Q4H PRN PRN Reason: Nausea/Vomiting - Labs Labs: 08/20/18 08:31 08/21/18 10:46 PT 16.7 SECONDS (9.7-12.2) H 08/18/18 14:21 INR 1.5 11/08/18 14:21 APTT 32 SECONDS (21-34) 08/18/18 14:21 - Constitutional Appears: Non-toxic, No Acute Distress - Head Exam Head Exam: ATRAUMATIC, NORMAL INSPECTION, NORMOCEPHALIC - Eye Exam Pupil Exam: PERRL - ENT Exam ENT Exam: Mucous Membranes Moist, Normal Exam - Neck Exam Neck Exam: Full ROM - Respiratory Exam Respiratory Exam: Clear to Ausculation Bilateral - Cardiovascular Exam Cardiovascular Exam: REGULAR RHYTHM, +S1, +S2 - GI/Abdominal Exam GI & Abdominal Exam: Soft - Rectal Exam Rectal Exam: Deferred - Extremities Exam Extremities Exam: Calf Tenderness, Full ROM - Back Exam Back Exam: Full ROM - Neurological Exam Neurological Exam: Alert, Awake, Oriented x3 - Skin Skin Exam: Dry, Intact, Normal Color, Warm Assessment and Plan - Assessment and Plan (Free Text) Assessment: Assessment : Fluid collection at the pelvis cause undetermined at this time. Plan: Plan: Contunue IV Flagyl, and Zosyn.
[2018-08-22] MEDS ORDERED: Iohexol 240 (50 ml) PO ONE (14:00)
--- NOTE | 2018-08-22 17:46 | CT ---
PROCEDURE: CT Abdomen and Pelvis without IV contrast. HISTORY: pelvic fluid COMPARISON: CT abdomen and pelvis with contrast performed 08/19/18 TECHNIQUE: Contiguous axial images of the abdomen and pelvis. Oral contrast was administered. No IV contrast given. Coronal and Sagittal reformats generated and reviewed. Radiation dose: Total exam DLP = 1067.83 mGy-cm. This CT exam was performed using one or more of the following dose reduction techniques: Automated exposure control, adjustment of the mA and/or kV according to patient size, and/or use of iterative reconstruction technique. FINDINGS: There is limited evaluation of the solid organs without the administration of IV contrast. LOWER THORAX: Patchy bilateral lower lobe consolidations and trace pleural effusions. LIVER: Unremarkable unenhanced appearance. GALLBLADDER AND BILE DUCTS: Unremarkable unenhanced appearance. PANCREAS: Unremarkable unenhanced appearance. SPLEEN: Splenomegaly. ADRENALS: Unremarkable unenhanced appearance. KIDNEYS AND URETERS: No hydronephrosis or obstructing renal calculus. BLADDER: Thick-walled under distended urinary bladder. REPRODUCTIVE: Unremarkable. APPENDIX: Similar in appearance to prior study somewhat distended with mild wall thickening. BOWEL: The stomach is nondistended. Multiple distended loops of small bowel. Oral contrast extends into the right colon. Diverticulosis without CT evidence of acute diverticulitis. Multiple thick-walled loops of small bowel. Thickened rectosigmoid colon raises concern for colitis. PERITONEUM: Apparent fluid collection in the pelvis measuring approximately 3.4 x 2.5 cm. No significant free fluid. No definite free air. LYMPH NODES: No bulky lymphadenopathy identified. VASCULATURE: No aortic aneurysm. No atherosclerotic calcifications present. Thick-walled under distended BONES: No acute osseous abnormality is detected. OTHER FINDINGS: Bilateral gynecomastia. IMPRESSION: Patchy bilateral lower lobe consolidations and trace pleural effusions. Apparent fluid collection in the pelvis measuring approximately 3.4 x 2.5 cm. Source unclear but possibly related to the appendix which remains similar in appearance, mildly dilated and thick walled. Diverticulitis/proctitis also remains in the differential. Multiple distended loops of small bowel. Oral contrast extends into the right colon. Diverticulosis without CT evidence of acute diverticulitis. Multiple thick-walled loops of small bowel. Thickened rectosigmoid colon raises concern for colitis. Mild splenomegaly. Additional findings as above.
--- NOTE | 2018-08-22 20:53 | CP.PCM.PN ---
Subjective - Date & Time of Evaluation Date of Evaluation: 08/22/18 Time of Evaluation: 20:51 - Subjective Subjective: Patient has no abdominal pain, no nausea, no diarrhea, no fever. No more tachycardia.Tolerated regular diet well. CTscan of the abdomen today revealed the same pelvic fluid collection, slightly less. Objective - Vital Signs/Intake and Output Vital Signs (last 24 hours): Temp Pulse Resp BP Pulse Ox 98.4 F 97 H 20 135/88 96 08/22/18 15:00 08/22/18 15:00 08/22/18 15:00 08/22/18 15:00 08/22/18 15:00 - Medications Medications: Current Medications Acetaminophen (Tylenol 325mg Tab) 650 mg PO Q6 PRN PRN Reason: Pain, moderate (4-7) Docusate Sodium (Colace) 100 mg PO BID [facility] Last Admin: 08/22/18 17:43 Dose: 100 mg Enoxaparin Sodium (Lovenox) 40 mg SC DAILY [facility] Last Admin: 08/22/18 09:23 Dose: Not Given Piperacillin Sod/Tazobactam (Sod 3.375 gm/ Sodium Chloride) 100 mls @ 200 mls/hr IVPB Q8H [facility]; Protocol Last Admin: 08/22/18 17:44 Dose: 200 mls/hr Metronidazole (Flagyl) 500 mg in 100 mls @ 100 mls/hr IVPB Q6 [facility]; Protocol Last Admin: 08/22/18 17:43 Dose: 100 mls/hr Dextrose/Sodium Chloride (Dextrose 5%/0.45% Ns 1000 Ml) 1,000 mls @ 100 mls/hr IV .Q10H [facility] Last Admin: 08/22/18 13:45 Dose: Not Given Ondansetron HCl (Zofran Inj) 4 mg IVP Q4H PRN PRN Reason: Nausea/Vomiting - Labs Labs: 08/20/18 08:31 08/21/18 10:46 PT 16.7 SECONDS (9.7-12.2) H 08/18/18 14:21 INR 1.5 08/18/18 14:21 APTT 32 SECONDS (21-34) 08/18/18 14:21 - Constitutional Appears: Well, Non-toxic, No Acute Distress - Head Exam Head Exam: NORMAL INSPECTION - Eye Exam Eye Exam: Normal appearance Pupil Exam: NORMAL ACCOMODATION - ENT Exam ENT Exam: Normal Exam - Neck Exam Neck Exam: Normal Inspection - Respiratory Exam Respiratory Exam: Clear to Ausculation Bilateral, NORMAL BREATHING PATTERN - Cardiovascular Exam Cardiovascular Exam: REGULAR RHYTHM - GI/Abdominal Exam GI & Abdominal Exam: Soft, Normal Bowel Sounds - Rectal Exam Rectal Exam: Deferred - Extremities Exam Extremities Exam: Normal Inspection - Back Exam Back Exam: NORMAL INSPECTION - Neurological Exam Neurological Exam: Alert, Awake, Oriented x3 - Psychiatric Exam Psychiatric exam: Anxious - Skin Skin Exam: Dry, Intact, Normal Color Assessment and Plan (1) Abdominal pain Assessment & Plan: On IV antibiotics. May switch to PO antibiotics in AM and discharge home. Status: Resolved (2) Tachycardia Status: Resolved
[2018-08-23] MEDS: Piperacillin/Tazobact 3.375 GM in Sodium Chloride 100 ML IVPB SCH ×2 (02:11→10:15)
[2018-08-23] MEDS: Dextrose 5%/0.45% NS 1,000 ML IV SCH ×2 (02:15→10:27)
[2018-08-23] MEDS: metroNIDAZOLE IV 500 mg/100 ml 500 MG/100 ML BAG IVPB SCH ×2 (06:00→12:12)
--- NOTE | 2018-08-23 09:13 | CP.PCM.PN ---
Subjective - Date & Time of Evaluation Date of Evaluation: 08/23/18 Time of Evaluation: 09:10 - Subjective Subjective: Surgery: Dr. Dixon Pt seen and examined. No acute overnight events. Pt is tolerating a regular diet, denies any abdominal pain and states he feels well. Denies nausea/vomiting, fevers/chills. Objective - Vital Signs/Intake and Output Vital Signs (last 24 hours): Temp Pulse Resp BP Pulse Ox 98.2 F 90 20 130/88 97 08/23/18 07:00 08/23/18 07:00 08/23/18 07:00 08/23/18 07:00 08/23/18 07:00 - Medications Medications: Current Medications Acetaminophen (Tylenol 325mg Tab) 650 mg PO Q6 PRN PRN Reason: Pain, moderate (4-7) Docusate Sodium (Colace) 100 mg PO BID [facility] Last Admin: 08/22/18 17:43 Dose: 100 mg Enoxaparin Sodium (Lovenox) 40 mg SC DAILY [facility] Last Admin: 08/22/18 09:23 Dose: Not Given Piperacillin Sod/Tazobactam (Sod 3.375 gm/ Sodium Chloride) 100 mls @ 200 mls/hr IVPB Q8H [facility]; Protocol Last Admin: 08/23/18 02:11 Dose: 200 mls/hr Metronidazole (Flagyl) 500 mg in 100 mls @ 100 mls/hr IVPB Q6 [facility]; Protocol Last Admin: 08/23/18 06:00 Dose: 100 mls/hr Dextrose/Sodium Chloride (Dextrose 5%/0.45% Ns 1000 Ml) 1,000 mls @ 100 mls/hr IV .Q10H [facility] Last Admin: 08/23/18 02:15 Dose: 100 mls/hr Ondansetron HCl (Zofran Inj) 4 mg IVP Q4H PRN PRN Reason: Nausea/Vomiting - Labs Labs: 08/20/18 08:31 08/21/18 10:46 PT 16.7 SECONDS (9.7-12.2) H 08/18/18 14:21 INR 1.5 08/18/18 14:21 APTT 32 SECONDS (21-34) 08/18/18 14:21 - Constitutional Appears: Well, No Acute Distress - Head Exam Head Exam: ATRAUMATIC, NORMOCEPHALIC - Eye Exam Eye Exam: Normal appearance - ENT Exam ENT Exam: Mucous Membranes Moist - Respiratory Exam Respiratory Exam: NORMAL BREATHING PATTERN - Cardiovascular Exam Cardiovascular Exam: RRR - GI/Abdominal Exam GI & Abdominal Exam: Soft. absent: Distended, Guarding, Tenderness - Extremities Exam Extremities Exam: absent: Calf Tenderness - Neurological Exam Neurological Exam: Alert, Awake, Oriented x3 - Skin Skin Exam: Dry, Warm Assessment and Plan - Assessment and Plan (Free Text) Assessment: 28M admitted for abdominal pain; found to have intra-abdominal fluid collection on CT Plan: - collection not amenable to IR drainage at this time - cont ABX - pt will need outpt GI followup/colonoscopy once acute inflammation resolves - no plan for surgical intervention at this time - d/w Dr. Destiny [place]
--- NOTE | 2018-08-23 09:45 | CP.PCM.CON ---
History of Present Illness - History of Present Illness History of Present Illness: 28 yo male admitted with six day h/o lower abdominal pain. CT scan shows fluid collection in area of appendix as well as dilated/thickened loops of distal small bowel and thickening of rectosigmoid colon. Fluid collection too small to aspirate by IR and cllinically his pain is better. No bleeding, N/V/C/D. No family h/o IBD. Review of Systems - Cardiovascular Cardiovascular: absent: Chest Pain, Dyspnea - Respiratory Respiratory: absent: Cough - Gastrointestinal Gastrointestinal: As Per HPI Past Patient History - Past Medical History & Family History Past Medical History?: No - Past Social History Smoking Status: Never Smoked - CARDIAC Hx Cardiac Disorders: No - PULMONARY Hx Respiratory Disorders: No - NEUROLOGICAL Hx Neurological Disorder: No - HEENT Hx HEENT Problems: No - RENAL Hx Chronic Kidney Disease: No - ENDOCRINE/METABOLIC Hx Endocrine Disorders: No - HEMATOLOGICAL/ONCOLOGICAL Hx Blood Disorders: No Hx Cirrhosis: No Hx Hepatitis A: No Hx Hepatitis B: No Hx Hepatitis C: No - INTEGUMENTARY Hx Dermatological Problems: No - MUSCULOSKELETAL/RHEUMATOLOGICAL Hx Musculoskeletal Disorders: No Hx Falls: No - GASTROINTESTINAL Hx Gastrointestinal Disorders: Yes (C/O abdominal pains x 6 days.) Hx Colitis: No Hx Crohn's Disease: No Hx Diarrhea: No Hx Gastritis: No Hx Gastroesophageal Reflux: No Hx Hemorrhoids: No - GENITOURINARY/GYNECOLOGICAL Hx Genitourinary Disorders: No - PSYCHIATRIC Hx Substance Use: No - SURGICAL HISTORY Hx Surgeries: No - ANESTHESIA Hx Anesthesia: No Has any member of the family had a problem w/ anesthesia?: No Meds Allergies/Adverse Reactions: Allergies Allergy/AdvReac Type Severity Reaction Status Date / Time No Known Allergies Allergy Unverified 08/18/18 13:12 - Medications Medications: Current Medications Acetaminophen (Tylenol 325mg Tab) 650 mg PO Q6 PRN PRN Reason: Pain, moderate (4-7) Docusate Sodium (Colace) 100 mg PO BID [facility] Last Admin: 08/22/18 17:43 Dose: 100 mg Enoxaparin Sodium (Lovenox) 40 mg SC DAILY [facility] Last Admin: 08/22/18 09:23 Dose: Not Given Piperacillin Sod/Tazobactam (Sod 3.375 gm/ Sodium Chloride) 100 mls @ 200 mls/hr IVPB Q8H [facility]; Protocol Last Admin: 08/23/18 02:11 Dose: 200 mls/hr Metronidazole (Flagyl) 500 mg in 100 mls @ 100 mls/hr IVPB Q6 [facility]; Protocol Last Admin: 08/23/18 06:00 Dose: 100 mls/hr Dextrose/Sodium Chloride (Dextrose 5%/0.45% Ns 1000 Ml) 1,000 mls @ 100 mls/hr IV .Q10H [facility] Last Admin: 08/23/18 02:15 Dose: 100 mls/hr Ondansetron HCl (Zofran Inj) 4 mg IVP Q4H PRN PRN Reason: Nausea/Vomiting Physical Exam - Constitutional Appears: No Acute Distress - Head Exam Head Exam: ATRAUMATIC, NORMOCEPHALIC - Respiratory Exam Respiratory Exam: NORMAL BREATHING PATTERN - Cardiovascular Exam Cardiovascular Exam: REGULAR RHYTHM, +S1 - GI/Abdominal Exam GI & Abdominal Exam: Normal Bowel Sounds, Soft. absent: Mass, Rigid, Tenderness Additional comments: Mild RLQ guiarding but no rebound or mass - Extremities Exam Extremities exam: Positive for: normal inspection - Neurological Exam Neurological exam: Alert, Oriented x3 - Psychiatric Exam Psychiatric exam: Normal Affect, Normal Mood - Skin Skin Exam: Dry, Warm Results - Vital Signs Recent Vital Signs: Last Vital Signs Temp 98.2 F 08/23/18 07:00 Pulse 90 08/23/18 07:00 Resp 20 08/23/18 07:00 BP 130/88 08/23/18 07:00 Pulse Ox 97 08/23/18 07:00 - Labs Result Diagrams: 08/20/18 08:31 08/21/18 10:46 - Imaging and Cardiology CT scan - abdomen Status: Image reviewed by me, Report reviewed by me Assessment & Plan (1) Pelvic fluid collection Assessment and Plan: r/o abscess, walled off [place] vs complication of IBD. Clinically improving on Abx. Continue Abx for 14 day course and then repeat CT as outpatient Status: Acute (2) Abnormal CT scan, colon Assessment and Plan: r/o IBD. Check IBD discrimination panel. Will likely need colonoscopy when clinically stable and fluid collection/abcess has resolved Follow up with me in office in 2 weeks if discharge planned today Status: Acute (3) Iron deficiency anemia Assessment and Plan: Check indices Status: Acute
[2018-08-23] MEDS: Enoxaparin 40 mg Syringe SC SCH (10:14)
--- NOTE | 2018-08-23 11:12 | CP.PCM.DIS ---
Provider - Provider Date of Admission: 08/18/18 17:03 Attending physician: Pat Mckeon MD Time Spent in preparation of Discharge (in minutes): 70 Diagnosis - Discharge Diagnosis (1) Iron deficiency anemia Status: Acute (2) Pelvic fluid collection Status: Acute (3) Abdominal pain Status: Resolved (4) Tachycardia Status: Resolved (5) Hypokalemia Status: Resolved (6) Dehydration Status: Resolved Hospital Course - Lab Results Lab Results: Most Recent Lab Values WBC 6.6 K/uL (4.8-10.8) 08/20/18 08:31 RBC 3.65 Mil/uL (4.40-5.90) L 08/20/18 08:31 Hgb 10.0 g/dL (12.0-18.0) L 08/20/18 08:31 Hct 29.5 % (35.0-51.0) L 08/20/18 08:31 MCV 80.9 fL (80.0-94.0) 08/20/18 08:31 MCH 27.3 pg (27.0-31.0) 08/20/18 08:31 MCHC 33.7 g/dL (33.0-37.0) 08/20/18 08:31 RDW 14.1 % (11.5-14.5) 08/20/18 08:31 Plt Count 497 K/uL (130-400) H 08/20/18 08:31 MPV 6.3 fL (7.2-11.7) L 08/20/18 08:31 Neut % (Auto) 72.8 % (50.0-75.0) 08/20/18 08:31 Lymph % (Auto) 11.5 % (20.0-40.0) L 08/20/18 08:31 [place] % (Auto) 13.3 % (0.0-10.0) H 08/20/18 08:31 Eos % (Auto) 1.9 % (0.0-4.0) 08/20/18 08:31 Baso % (Auto) 0.5 % (0.0-2.0) 08/20/18 08:31 Neut # (Auto) 4.8 K/uL (1.8-7.0) 08/20/18 08:31 Lymph # (Auto) 0.8 K/uL (1.0-4.3) L 08/20/18 08:31 Swift # (Auto) 0.9 K/uL (0.0-0.8) H 08/20/18 08:31 Eos # (Auto) 0.1 K/uL (0.0-0.7) 08/20/18 08:31 Baso # (Auto) 0.0 K/uL (0.0-0.2) 08/20/18 08:31 PT 16.7 SECONDS (9.7-12.2) H 08/18/18 14:21 INR 1.5 08/18/18 14:21 APTT 32 SECONDS (21-34) 08/18/18 14:21 Sodium 137 mmol/L (132-148) 08/21/18 10:46 Potassium 3.7 mmol/L (3.6-5.2) 08/21/18 10:46 Chloride 102 mmol/L (98-107) 08/21/18 10:46 Carbon Dioxide 20 mmol/L (22-30) L 08/21/18 10:46 Anion Gap 19 (10-20) 08/21/18 10:46 BUN 7 mg/dL (9-20) L 08/21/18 10:46 Creatinine 0.8 mg/dL (0.8-1.5) 08/21/18 10:46 Est GFR ( Amer) > 60 08/21/18 10:46 Est GFR (Non-Af Amer) > 60 08/21/18 10:46 Random Glucose 70 mg/dL (75-110) L 08/21/18 10:46 Calcium 8.4 mg/dl (8.6-10.4) L 08/21/18 10:46 Total Bilirubin 2.2 mg/dL (0.2-1.3) H 08/20/18 08:31 Direct Bilirubin 2.4 mg/dL (0.0-0.4) H 08/18/18 18:31 AST 47 U/L (17-59) 08/20/18 08:31 ALT 53 U/L (21-72) 08/20/18 08:31 Alkaline Phosphatase 115 U/L (38-126) 08/20/18 08:31 Total Protein 7.1 g/dL (6.3-8.3) 08/20/18 08:31 Albumin 3.7 g/dL (3.5-5.0) 08/20/18 08:31 Globulin 3.4 gm/dL (2.2-3.9) 08/20/18 08:31 Albumin/Globulin Ratio 1.1 (1.0-2.1) 08/20/18 08:31 Lipase 264 U/L (23-300) 08/20/18 08:17 Free T4 2.29 ng/dL (0.78-2.19) H 08/20/18 08:31 TSH 3rd Generation 1.08 mIU/L (0.46-4.68) 08/20/18 08:31 Urine Color Yellow (YELLOW) 08/18/18 16:13 Urine Clarity Sl hazy (Clear) 08/18/18 16:13 Urine pH 6.0 (5.0-8.0) 08/18/18 16:13 Ur Specific [employer] 1.033 (1.003-1.030) H 08/18/18 16:13 Urine Protein 1+ mg/dL (NEGATIVE) H 08/18/18 16:13 Urine Glucose (UA) Normal mg/dL (Normal) 08/18/18 16:13 Urine Ketones 1+ mg/dL (NEGATIVE) H 08/18/18 16:13 Urine Blood Negative (NEGATIVE) 08/18/18 16:13 Urine Nitrate Negative (NEGATIVE) 08/18/18 16:13 Urine Bilirubin Negative (NEGATIVE) 08/18/18 16:13 Urine Urobilinogen 4.0 mg/dL (0.2-1.0) 08/18/18 16:13 Ur Leukocyte Esterase Neg Tom/uL (Negative) 08/18/18 16:13 Urine WBC (Auto) 13 /hpf (0-5) H 08/18/18 16:13 Urine RBC (Auto) 2 /hpf (0-3) 08/18/18 16:13 Ur Squamous Epith Cells < 1 /hpf (0-5) 08/18/18 16:13 Stool Occult Blood Negative (NEGATIVE) 08/18/18 14:21 Hepatitis A IgM Ab Negative (NEGATIVE) 08/19/18 08:29 Hep Bs Antigen Negative (NEGATIVE) 08/19/18 08:29 Hep B Core IgM Ab Negative (NEGATIVE) 08/19/18 08:29 Hepatitis C Antibody Negative (NEGATIVE) 08/19/18 08:29 Blood Type B POSITIVE 08/18/18 14:21 Antibody Screen Negative 08/18/18 14:21 - Hospital Course Hospital Course: Admitted this 28 years old male because of sudden onset of of abdominal pains generalized in location, not associated with LBM/nausea or vomting. Patient had no fever associated. The CAT scan on this patient in the ER showed a pelvic fluids collection which is not definite about the source whether it is a ruptured AP /OR a siverticulitis. Being that the patient is afebrile all throughout his hospital stay and had no fever, and lack of leucocytosis, and the pain is subsiding an aspiration was attempted but apparently it is not done due the the inaccessibillity of the site. Dr. San was consulted and he wants to do a colonoscopy on the patient as an outpatient after a repeat CAT SCAN. I have discussed this with the surgeon and he suggested that the patient be dischrged on antibiotics and to be seen by him in his office tomorrow. Discharge Exam - Head Exam Head Exam: ATRAUMATIC, NORMOCEPHALIC - Eye Exam Eye Exam: EOMI, Normal appearance, PERRL - ENT Exam ENT Exam: Mucous Membranes Moist, Normal Exam - Neck Exam Neck exam: Full Rom - Respiratory Exam Respiratory Exam: Clear to PA & Lateral, NORMAL BREATHING PATTERN, UNREMARKABLE - Cardiovascular Exam Cardiovascular Exam: Tachycardia, +S1, +S2 - GI/Abdominal Exam GI & Abdominal Exam: Normal Bowel Sounds, Soft - Rectal Exam Rectal Exam: Deferred - Back Exam Back exam: FULL ROM, NORMAL INSPECTION - Neurological Exam Neurological exam: Alert, Oriented x3 - Skin Skin Exam: Dry, Intact, Normal Color Discharge Plan - Follow Up Plan Condition: GOOD Patient education suggested?: No Additional Instructions: Natalia to be seen in Dr. Duarte office t omorrow, isela booth to be seen in [facility] office after 2 weeks and in my office in 10 days. Clinical Quality Measures - CQM - VTE Did patient receive overlap therapy during hosptialization?: No
[2018-08-23 13:04] LABS: BASO % 0.7 % (0.0-2.0); EOS # 0.1 K/uL (0.0-0.7); EOS % 1.9 % (0.0-4.0); LYMPH # 0.6 K/uL (1.0-4.3); LYMPH % 10.7 % (20.0-40.0); MEAN CELL VOLUME 81.4 fL (80.0-94.0); MEAN CORPUSCULAR HEMOGLOBIN 27.6 pg (27.0-31.0); MEAN CORPUSCULAR HGB CONC 33.9 g/dL (33.0-37.0); MEAN PLATELET VOLUME 6.4 fL (7.2-11.7); MONO # 0.6 K/uL (0.0-0.8); MONO % 10.1 % (0.0-10.0); NEUT # 4.2 K/uL (1.8-7.0); NEUT % 76.6 % (50.0-75.0); RBC 3.98 Mil/uL (4.40-5.90); RED CELL DISTRIBUTION WIDTH 14.3 % (11.5-14.5); WHITE BLOOD COUNT 5.5 K/uL (4.8-10.8)
[2018-08-23 13:24] LABS: IRON 45 ug/dL (49-181)
[2018-08-23 13:33] LABS: TOTAL IRON BINDING CAPACITY 249 ug/dL (250-450)
[2018-08-23 14:12] LABS: ALBUMIN 3.7 g/dL (3.5-5.0); ALT/SGPT 43 U/L (21-72); AST/SGOT 42 U/L (17-59); BLOOD UREA NITROGEN 2 mg/dL (9-20); CALCIUM 8.9 mg/dl (8.6-10.4); GFR NON-AFRICAN AMERICAN > 60
[2018-08-23 14:32] LABS: FOLATE 3.7 ng/mL
[2018-08-23 15:53] VITALS: BP 137/97; PULSE 80; RESP 18; TEMP 98; O2SAT 100
== END 2018-08-23 17:35 | disposition home or self-care (01) | DRG 389 ==
LOC: C.ER 12:31 → C.3T 17:03 → C.9E 17:57 → C.6T 18:37
PROVIDERS: ADMIT Legal Medicine; ATTEND Legal Medicine
DX: K56.609 Unspecified intestinal obstruction, unspecified as to partial versus complete obstruction (principal); R18.8 Other ascites; I88.0 Nonspecific mesenteric lymphadenitis; K56.7 Ileus, unspecified; E86.0 Dehydration; D50.9 Iron deficiency anemia, unspecified; E87.6 Hypokalemia